=== PATIENT | male | born 1945 | race Caucasian/White ===

== ENCOUNTER 2020-03-22 16:40 | Emergency (ER) | payer OTHER ==
[2020-03-22 17:22] LABS: Urine Blood TRACE (NEG); Urine Glucose 2+ (NEG); Urine Protein NEGATIVE (NEG); Urine Specific Gravity 1.015 (1.005-1.030); Urine pH 5.5 (5.0-7.0)
[2020-03-22 17:22] LABS: Absolute Lymphocytes (CBC) 1.3 K/uL (0.7-4.9); Basophils % 0.5 % (0-1.3); Hematocrit 40.6 % (39.6-49.0); MPV 8.8 fL (7.6-11.3); RBC Red Blood Cell Count 4.42 M/uL (4.33-5.43)
[2020-03-22 17:34] LABS: BUN Blood Urea Nitrogen 15 mg/dL (7-18); Bicarbonate 22 mmol/L (21-32); Glucose Level 153 mg/dL (74-106); Potassium 4.3 mmol/L (3.5-5.1); Sodium Level 139 mmol/L (136-145)
--- NOTE | 2020-03-22 17:37 | RAD REPORT ---
EXAM DESCRIPTION: CT - Stone Protocol - 03/22/2020 5:29 pm CLINICAL HISTORY: FLANK PAIN COMPARISON: No comparisons TECHNIQUE: Axial 5 mm thick images were obtained without oral or IV contrast. The [id number] span s the entirety of the system including uppermost abdomen and lung bases. All CT scans are performed using dose optimization technique as appropriate and may include automated exposure control or mA/KV adjustment according to patient size. FINDINGS: No hydronephrosis is present and no obstructing ureteral calculi. No suspicious renal mass es. Isodense masses and pyelonephritis are not excluded on a stone protocol CT scan. No significant a drenal finding. No urinary bladder suspicious finding. No nonobstructing calculi seen. Liver shows diffuse fatty infiltration. No focal liver lesion identifiable. Gallbladder is contracted . No biliary tree dilatation. Spleen and pancreas show no suspicious findings. No suspicious bowel findings. Appendix is normal. No mass or bulky lymphadenopathy. Fat extends into the origin of each inguinal canal. Very minimal um bilical hernia is present. No free air, free fluid or inflammatory stranding. Disc and bony degenerative changes are present. No pathologic bone process. IMPRESSION: No hydronephrosis, obstructing calculus or other acute finding. Isodense masses and pyelonephritis are not excluded on stone protocol technique. Diffuse fatty infiltration of the liver.
--- NOTE | 2020-03-22 17:42 | ER ---
Nurse's Notes [facility] Name: Adryan Hurt Age: 74 yrs Sex: Male : 1945 Arrival Date: 03/22/2020 Time: 16:43 Bed 23 Private MD: Diagnosis: Low back pain Presentation: 03/22 16:48 Chief complaint: Patient states: R flank pain radiating to the front x 3-4 days, but ca1 worst today, worse with movement and repositioning . Denies urinary symptoms. Coronavirus screen: Proceed with normal triage. Patient denies a cough. Patient denies shortness of breath or difficulty breathing. Patient denies measured and/or subjective temperature greater than 100.4F prior to today's visit. Patient denies travel on a cruise ship or to a country the [facility] currently lists as an affected area. Patient denies contact with known and/or suspected case of COVID-19. Ebola Screen: Patient negative for fever greater than or equal to 101.5 degrees Fahrenheit, and additional compatible Ebola Virus Disease symptoms Patient denies exposure to infectious person. Patient denies travel to an Ebola-affected area in the 21 days before illness onset. No symptoms or risks identified at this time. Initial Sepsis Screen: Does the patient meet any 2 criteria? No. Patient's initial sepsis screen is negative. Does the patient have a suspected source of infection? No. Patient's initial sepsis screen is negative. Risk Assessment: Do you want to hurt yourself or someone else? Patient reports no desire to harm self or others. Onset of symptoms was March 22, 2020. 16:48 Method Of Arrival: Wheelchair ca1 16:48 Acuity: LEON 3 ca1 Historical: - Allergies: 16:52 No Known Allergies; ca1 - Home Meds: 16:52 amlodipine oral [Active]; Lisinopril Oral [Active]; metformin Oral [Active]; ca1 - PMHx: 16:52 Hypertension; Diabetes - NIDDM; ca1 - Immunization history:: Adult Immunizations up to date. - Social history:: Smoking status: Patient denies any tobacco usage or history of. - Family history:: not pertinent. - Code Status:: unknown. Screenin:23 Abuse screen: Denies threats or abuse. Nutritional screening: No deficits noted. mt2 Tuberculosis screening: No symptoms or risk factors identified. Fall Risk Gait- Impaired (20 pts.). Assessment: 17:23 General: Appears uncomfortable, Behavior is cooperative, Reports Denies fever, chills. mt2 Pain: Complains of pain in back Pain radiates to abdomen Pain currently is 10 out of 10 on a pain scale. level that patient reports is acceptable is 0 out of 10 on a pain scale. Quality of pain is described as pressure, Pain began 2-3 days ago. Is continuous, Alleviated by nothing. Aggravated by increased activity, Current management is with Tylenol, is ineffective Goal of pain control is to be pain free. Neuro: No deficits noted. Cardiovascular: No deficits noted. Respiratory: Respiratory effort is labored. GI: Abdomen is round distended, Reports lower abdominal pain. : Bladder is distended Reports pain flank(s). EENT: No deficits noted. Derm: No deficits noted. Musculoskeletal: No deficits noted. 18:22 Reassessment: No changes from previously documented assessment. Patient and/or family mt2 updated on plan of care and expected duration. Pain level reassessed. Patient is alert, oriented x 3, equal unlabored respirations, skin warm/dry/pink. Patient states symptoms have not improved. Vital Signs: 16:48 BP 141 / 64; Pulse 87; Resp 15 S; Temp 99.2(TE); Pulse Ox 98% on R/A; Weight 106.59 kg ca1 (R); Height 6 ft. 0 in. (182.88 cm) (R); Pain 10/10; 17:23 BP 155 / 101; Pulse 91; Resp 22; Pulse Ox 94% on R/A; mt2 18:14 BP 126 / 84; Pulse 84; Resp 16; Pulse Ox 94% on R/A; Pain 8/10; mt2 18:21 BP 126 / 84; Pulse 84; Resp 16; Pulse Ox 94% on R/A; Pain 9/10; mt2 16:48 Body Mass Index 31.87 (106.59 kg, 182.88 cm) ca1 [place] Coma Score: 17:23 Eye Response: spontaneous(4). Verbal Response: oriented(5). Motor Response: obeys mt2 commands(6). Total: 15. ED Course: 16:43 Patient arrived in ED. ag5 16:50 Triage completed. ca1 16:52 Arm band placed on right wrist. ca1 16:54 Reynold, Stephanie, [employer]-C is PHCP. kb 16:54 Ambrose Lazar MD is Attending Physician. kb 17:10 Initial lab(s) drawn, by me, sent to lab. mt2 17:18 Jena Jovel, RN is Primary Nurse. mt2 17:19 Basic Metabolic Panel Sent. mt2 17:19 CBC with Diff Sent. mt2 17:23 Appears restless. Awaiting lab results, Awaiting CT Scan. mt2 17:23 Patient has correct armband on for positive identification. Placed in gown. Bed in low mt2 position. Call light in reach. Side rails up X 1. 17:23 Inserted saline lock: 18 gauge in right antecubital area, using aseptic technique. mt2 Blood collected. 17:29 CT Stone Protocol In Process Unspecified. EDMS 18:22 No provider procedures requiring assistance completed. IV discontinued, intact, mt2 bleeding controlled, No redness/swelling at site. Pressure dressing applied. Administered Medications: 17:45 Drug: morphine 4 mg Route: IVP; Infused Over: 2 mins; Site: right antecubital; mt2 18:21 Follow up: BP 126 / 84; Pulse 84 bpm; Resp 16 bpm; Pulse Ox 94% RA; Pain 9/10 Adult mt2 17:45 Drug: Zofran (Ondansetron) 4 mg Route: IVP; Site: right antecubital; mt2 18:14 Follow up: BP 126 / 84; Pulse 84 bpm; Resp 16 bpm; Pulse Ox 94% RA; Pain 8/10 Adult mt2 18:18 Drug: Flexeril 10 mg Route: PO; mt2 Outcome: 17:41 Discharge ordered by . kb 18:22 Discharged to home ambulatory, with significant other. mt2 18:22 Condition: stable 18:22 Discharge instructions given to patient, Instructed on discharge instructions, follow up and referral plans. no drinking with medication, medication usage, Demonstrated understanding of instructions, follow-up care, medications, Prescriptions given X 1. 18:24 Patient left the ED. mt2 Signatures: Dispatcher [employer] EDMS Stephanie Flaherty FNP-C FNP-Sera Wong RN RN ca1 Larisa, Danielare ag5 Jena Jovel RN RN mt2 Corrections: (The following items were deleted from the chart) 18:22 18:14 BP 126 / 8; Pulse 84 bpm; Resp 16 bpm Spontaneous; Pulse Ox 94% ; Pain 05/18 mt2 Adult; Patient continue to c/o back pain. notified provider. new order to administer flexeril mt2
--- NOTE | 2020-03-22 17:42 | EDPHYS ---
Physician Documentation [facility] Name: Adryan Hurt Age: 74 yrs Sex: Male : 1945 Arrival Date: 03/22/2020 Time: 16:43 Bed 23 Private MD: ED Physician Ambrose Lazar HPI: 03/22 17:16 This 74 yrs old Male presents to ER via Wheelchair with complaints of Right kb Side Pain. 17:16 The patient complains of pain in the right flank. The pain does not radiate. Onset: The kb symptoms/episode began/occurred 4 day(s) ago. Modifying factors: The symptoms are alleviated by nothing. the symptoms are aggravated by movement. Associated signs and symptoms: The patient has no apparent associated signs or symptoms. Severity of pain: At its worst the pain was moderate in the emergency department the pain is unchanged. The patient has not experienced similar symptoms in the past. The patient has not recently seen a physician. Pt reports right flank pain that started 4 days ago. Reports he drank a lot of water to try to help it, but it didn't get better. States the first two days there was pain, yesterday it eased up quite a bit, but today it was excruciating. Pain worse with movement. no tenderness to palpation. Historical: - Allergies: 16:52 No Known Allergies; ca1 - Home Meds: 16:52 amlodipine oral [Active]; Lisinopril Oral [Active]; metformin Oral [Active]; ca1 - PMHx: 16:52 Hypertension; Diabetes - NIDDM; ca1 - Immunization history:: Adult Immunizations up to date. - Social history:: Smoking status: Patient denies any tobacco usage or history of. - Family history:: not pertinent. - Code Status:: unknown. ROS: 17:15 Constitutional: Negative for fever, chills, and weight loss, ENT: Negative for injury, kb pain, and discharge, Neck: Negative for injury, pain, and swelling, Cardiovascular: Negative for chest pain, palpitations, and edema, Respiratory: Negative for shortness of breath, cough, wheezing, and pleuritic chest pain, Abdomen/GI: Negative for abdominal pain, nausea, vomiting, diarrhea, and constipation, MS/Extremity: Negative for injury and deformity, Skin: Negative for injury, rash, and discoloration, Neuro: Negative for headache, weakness, numbness, tingling, and seizure. 17:15 Back: Positive for pain with movement, flank pain, on the right. 17:15 : Positive for flank pain. Exam: 17:15 Constitutional: This is a well developed, well nourished patient who is awake, alert, kb and in no acute distress. Head/Face: Normocephalic, atraumatic. Chest/axilla: Normal chest wall appearance and motion. Nontender with no deformity. No lesions are appreciated. Cardiovascular: Regular rate and rhythm with a normal S1 and S2. No gallops, murmurs, or rubs. Normal PMI, no JVD. No pulse deficits. Respiratory: Lungs have equal breath sounds bilaterally, clear to auscultation and percussion. No rales, rhonchi or wheezes noted. No increased work of breathing, no retractions or nasal flaring. Abdomen/GI: Soft, non-tender, with normal bowel sounds. No distension or tympany. No guarding or rebound. No evidence of tenderness throughout. Back: No spinal tenderness. No costovertebral tenderness. Full range of motion. Skin: Warm, dry with normal turgor. Normal color with no rashes, no lesions, and no evidence of cellulitis. MS/ Extremity: Pulses equal, no cyanosis. Neurovascular intact. Full, normal range of motion. Neuro: Awake and alert, GCS 15, oriented to person, place, time, and situation. Cranial nerves II-XII grossly intact. Motor strength 5/5 in all extremities. Sensory grossly intact. Cerebellar exam normal. Normal gait. Vital Signs: 16:48 BP 141 / 64; Pulse 87; Resp 15 S; Temp 99.2(TE); Pulse Ox 98% on R/A; Weight 106.59 kg ca1 (R); Height 6 ft. 0 in. (182.88 cm) (R); Pain 10/10; 17:23 BP 155 / 101; Pulse 91; Resp 22; Pulse Ox 94% on R/A; mt2 18:14 BP 126 / 84; Pulse 84; Resp 16; Pulse Ox 94% on R/A; Pain 8/10; mt2 18:21 BP 126 / 84; Pulse 84; Resp 16; Pulse Ox 94% on R/A; Pain 9/10; mt2 16:48 Body Mass Index 31.87 (106.59 kg, 182.88 cm) ca1 [place] Coma Score: 17:23 Eye Response: spontaneous(4). Verbal Response: oriented(5). Motor Response: obeys mt2 commands(6). Total: 15. MDM: 16:54 Patient medically screened. kb 17:16 Data reviewed: vital signs, nurses notes. Data interpreted: Pulse oximetry: on room air kb is 98 %. Interpretation: normal. 17:39 Counseling: I had a detailed discussion with the patient and/or guardian regarding: the kb historical points, exam findings, and any diagnostic results supporting the discharge/admit diagnosis, lab results, radiology results, the need for outpatient follow up, a family practitioner, to return to the emergency department if symptoms worsen or persist or if there are any questions or concerns that arise at home. 03/22 17:14 Order name: CBC with Diff; Complete Time: 17:32 kb 03/22 17:14 Order name: Basic Metabolic Panel; Complete Time: 17:36 kb 03/22 17:14 Order name: CT Stone Protocol; Complete Time: 17:39 kb 03/22 17:20 Order name: Urine Dipstick--Ancillary (enter results); Complete Time: 17:25 eb 03/22 16:54 Order name: Urine Dipstick-Ancillary (obtain specimen); Complete Time: 17:19 kb 03/22 17:14 Order name: IV Start; Complete Time: 17:19 kb Administered Medications: 17:45 Drug: morphine 4 mg Route: IVP; Infused Over: 2 mins; Site: right antecubital; mt2 18:21 Follow up: BP 126 / 84; Pulse 84 bpm; Resp 16 bpm; Pulse Ox 94% RA; Pain 9/10 Adult mt2 17:45 Drug: Zofran (Ondansetron) 4 mg Route: IVP; Site: right antecubital; mt2 18:14 Follow up: BP 126 / 84; Pulse 84 bpm; Resp 16 bpm; Pulse Ox 94% RA; Pain 8/10 Adult mt2 18:18 Drug: Flexeril 10 mg Route: PO; mt2 Disposition: 03/23 07:03 Co-signature as Attending Physician, Ambrose Lazar MD. rn Disposition: 03/22/20 17:41 Discharged to Home. Impression: Low back pain. - Condition is Stable. - Discharge Instructions: Back Injury Prevention, [id number], Back Pain, Adult, [id number], Back Exercises, [id number]. - Prescriptions for Cyclobenzaprine 10 mg Oral Tablet - take 1 tablet by ORAL route every 8 hours As needed; 21 tablet. - Medication Reconciliation Form, Thank You Letter, Antibiotic Education, Prescription Opioid Use form. - Follow up: Emergency Department; When: As needed; Reason: Worsening of condition. Follow up: Private Physician; When: 2 - 3 days; Reason: Recheck today's complaints, Continuance of care, Re-evaluation by your physician. Signatures: Dispatcher [employer] EDMS Stephanie Flaherty, PAINTING CONTRACTOR-C PAINTING CONTRACTOR-CkAmbrose Mayfield MD MD rn Raoul, Sera RN RN Jena Covarrubias RN RN mt2 Corrections: (The following items were deleted from the chart) 03/22 18:24 17:41 03/22/2020 17:41 Discharged to Home. Impression: Low back pain. Condition is mt2 Stable. Forms are Medication Reconciliation Form, Thank You Letter, Antibiotic Education, Prescription Opioid Use. Follow up: Emergency Department; When: As needed; Reason: Worsening of condition. Follow up: Private Physician; When: 2 - 3 days; Reason: Recheck today's complaints, Continuance of care, Re-evaluation by your physician. kb
[2020-03-22] MEDS ORDERED: ONDANSETRON 4 MG/2 ML VIAL ONE (17:47)
[2020-03-22] MEDS ORDERED: MORPHINE 4 MG/ML SYR ONE (17:47)
[2020-03-22] MEDS ORDERED: CYCLOBENZAPRINE 10 MG TAB ONE (18:26)
[2020-03-22 20:41] VITALS: TEMP 99.2
[2020-03-22 20:42] VITALS: O2SAT 94
[2020-03-22 20:44] VITALS: BP 126/84
== END 2020-03-22 18:24 | disposition home or self-care (01) ==
LOC: ER 16:40
DX: M54.5 Low back pain (principal); I10 Essential (primary) hypertension; E11.9 Type 2 diabetes mellitus without complications
CPT/HCPCS: 85025; 80048; 36415; 81003; 76377; 74176; 96375; 96374; 99284; J2405